=== PATIENT | female | born 1985 | race Caucasian/White ===

== ENCOUNTER 2019-04-06 00:28 | Outpatient (CLI) | payer MEDICAID, SELFPAY ==
--- NOTE | 2019-04-06 13:55 | DI.US_ITS ---
SYMPTOMS/DIAGNOSIS: DYSFUNCTIONAL UTERINE BLEEDING, N93.8 PELVIC ULTRASOUND: Comparison is made with July,. The uterus measures 8.3 x 4.5 x 5 cm. The endometrial stripe measures 3 mm in thickness. No fibroids are seen. The myometrium appears mildly heterogeneous. The ovaries are normal in size and appearance. There is a small amount of fluid adjacent to the right ovary. The kidneys are unremarkable. IMPRESSION: Mildly heterogeneous myometrium without evidence of a discrete fibroid. Normal-appearing endometrial stripe.
== END 2019-04-06 00:48 ==
PROVIDERS: PCP Family Medicine; Visit Provider Family Medicine
DX: N93.8 Other specified abnormal uterine and vaginal bleeding (principal); N85.8 Other specified noninflammatory disorders of uterus
CPT/HCPCS: 76830; 76856

== ENCOUNTER 2019-05-10 16:44 | Outpatient (REF) | payer MEDICAID, SELFPAY ==
--- NOTE | 2019-05-10 15:00 | PAPFT_PTH ---
PATIENT: Emy Kern LOC: [facility] U#:[id number] AGE/SX: 34/F ROOM: RE05/10/[address]: Maxine Fish MD, DC : 1985 BED: DIS: 05/10/2019 SPEC #: [id number] RECD: 05/11/19 13:02 STATUS: MECCA RESilvestre #: [id number] EB: 05/10/19 15:[address]: Maxine Fish DEPT: [facility] Cytology RECD BY: Michelle Ivy Tissues: 1 - CX/ENDOCX FOR PAP SMEARS Procedures: PAP THIN PREP/[facility] Screening Comments: [id number]
== END 2019-05-10 17:04 ==
LOC: LBN 16:44
PROVIDERS: PCP Family Medicine; Visit Provider Family Medicine
DX: Z12.4 Encounter for screening for malignant neoplasm of cervix (principal)
CPT/HCPCS: 88142

== ENCOUNTER → 2022-03-31 01:23 | Outpatient (CLI) | payer MEDICAID, SELFPAY ==
--- NOTE | 2022-03-31 07:00 | DI.US_ITS ---
Exam(s) US ABD PELV TRANSVAG NON-OB EXAM: US ABD PELV TRANSVAG NON-OB CLINICAL HISTORY: abdominal pain, R10.9 TECHNIQUE: Ultrasound of the abdomen and pelvis was performed both transabdominal and transvaginal. COMPARISON: US US PELVIS TRANSVAGINAL from 04/06/2019 FINDINGS: ABDOMEN: There is no ascites evident. LIVER: Liver is hyperechoic indicating steatosis. There are no hepatic lesions evident nor obvious d ilatation of intrahepatic ducts. GALLBLADDER/BILIARY: The gallbladder surgically absent. The common hepatic duct isnot well visualized on this study PANCREAS: There is no evidence of pancreatic mass nor dilatation of the pancreatic duct. SPLEEN: Spleen size is upper normal. No intrasplenic lesions. No perisplenic fluid KIDNEYS:Kidneys exhibit normal size with no evidence of solid mass, calculus, nor hydronephrosis. No cortical cysts evident. ABDOMINAL AORTA: There is no evidence of abdominal aortic aneurysm. IVC: Normal diameter where visualized. PELVIS: (Performed both transabdominal and transvaginal) UTERUS: Measures 8 cm length x 4 cm AP x 5 cm wide. There are no uterine fibroids.There is an IUD in the endometrial cavity. Endometrial thickness measures 14 mm. There is no fluid in the endometrial canal. CERVIX: There are no obvious nabothian cysts. RIGHT OVARY: Measures 4 x 3.3 x 2.3 cm Contains small sub cm follicular cysts. LEFT OVARY: Left ovary was not seen on today's study. CUL-DE-SAC: No free fluid evident. IMPRESSION: 1. Gallbladder surgically absent. No obvious dilatation of the CBD although extrahepatic biliary surekha e was difficult to find in this patient. 2. Hepatic steatosis. No obvious discrete focal hepatic lesions. 3. There is no ascites. 4. IUD in satisfactory position in the endometrial canal. Endometrial stripe thickness is 1.4 cm. 5. Right ovary appears age-appropriate. Left ovary not seen on today's study. 6. No free fluid evident in the adnexal regions and cul-de-sac. 7. DATA REPOSITORY:
== END ==
PROVIDERS: PCP Family Medicine; Visit Provider Family Medicine
DX: R10.9 Unspecified abdominal pain (principal); R10.2 Pelvic and perineal pain; K76.0 Fatty (change of) liver, not elsewhere classified; Z97.5 Presence of (intrauterine) contraceptive device; Z90.49 Acquired absence of other specified parts of digestive tract
CPT/HCPCS: 76700; 76830; 76856

== ENCOUNTER 2024-05-04 01:28 | Outpatient (CLI) | payer MEDICAID, SELFPAY ==
[2024-05-04 15:29] LABS: Hemoglobin A1C 5.2 % (<5.7)
[2024-05-04 16:08] LABS: ALT 36 U/L (14-59); AST 20 U/L (15-37); Albumin 3.9 g/dL (3.4-5.0); Alkaline Phosphatase 53 U/L (46-116); Anion Gap 8.9 mmol/L (3-11); BUN 9 mg/dL (7-18); Bilirubin, Total 0.56 mg/dL (0.2-1.0); CO2 27.1 mmol/L (21.0-32.0); Calcium 9.2 mg/dL (8.5-10.1); Calculated LDL 195 mg/dL (<100); Chloride 101 mmol/L (98-107); Cholesterol 259 mg/dL (<200); Estimated GFR 74.41 (mL/min/1.73m2); Glucose 86 mg/dL (74-106); HDL Cholesterol 37 mg/dL (40-60); Sodium 137 mmol/L (136-145); Total Protein 8.1 g/dL (6.4-8.2); Triglyceride 135 mg/dL (<150)
== END 2024-05-04 01:29 | disposition home or self-care (01) ==
LOC: LBO 01:33
PROVIDERS: PCP Family Medicine; Visit Provider Family Medicine
DX: E11.9 Type 2 diabetes mellitus without complications (principal); Z00.00 Encounter for general adult medical examination without abnormal findings; I10 Essential (primary) hypertension
CPT/HCPCS: 36415; 80053; 80061; 83036

== ENCOUNTER 2025-05-20 14:42 | Outpatient (REF) | payer MEDICAID, SELFPAY ==
--- NOTE | 2025-05-20 13:16 | PAPFT_PTH ---
PATIENT: Emy Kern LOC: [facility]#:[id number] AGE/SX: 40/F ROOM: RE05/20/[address]: Maxine Fish MD, DC : 1985 BED: DIS: 05/20/2025 SPEC #: [id number] RECD: 05/21/25 11:38 STATUS: MECCA RESilvestre #: [id number] EB: 05/20/25 13:[address]: Maxine Fish DEPT: [facility] Cytology RECD BY: Christine Danielson Tissues: 1 - CX/ENDOCX FOR PAP SMEARS Procedures: PAP THIN PREP/UVM Screening Comments: [id number]
== END 2025-05-20 14:43 | disposition home or self-care (01) ==
LOC: LBN 14:42
PROVIDERS: PCP Family Medicine; Visit Provider Family Medicine
DX: Z12.4 Encounter for screening for malignant neoplasm of cervix (principal)
CPT/HCPCS: 88142